=== PATIENT | male | born 1960 | race Two or more races ===

== ENCOUNTER 2025-06-05 11:00 | Day surgery (SDC) | payer OTHER ==
[2025-05-29 11:39] VITALS: BP 127/84
[~2025-06-05] VITALS: Ht 175.3 cm; Wt 76.2 kg
[~2025-06-05 11:00] MED LIST: FINASTERIDE1 MG PO; NEXIUM 24HR20 M1 PO; TAMS0.4C PO; ZOCOR40 MG PO
[2025-06-05] MEDS ORDERED: CEFTRIAXONE SODIUM 2,000 MG VIAL ONE ×2 (12:57→13:00)
[2025-06-05] MEDS ORDERED: METRONIDAZOLE/SODIUM CHLORIDE 500 MG/100 ML PIGGYBACK IV ONE (12:57)
[2025-06-05] MEDS ORDERED: DIBUCAINE 30 GM TUBE ONE (14:45)
[2025-06-05] MEDS ORDERED: BUPIVACAINE HCL/MPF 0.5% 30ML VIAL ONE (14:45)
[2025-06-05] MEDS ORDERED: HEMOSTATIC MATRIX 1 KIT KIT TOP ONE (14:45)
[2025-06-05] MEDS ORDERED: POVIDONE-IODINE 118 ML BOTT TOP ONE (14:45)
[2025-06-05] MEDS ORDERED: LIDOCAINE HCL 1%/EPINEPHRINE 20ML VIAL IJ ONE (14:45)
[2025-06-05] MEDS ORDERED: NEURONTIN300 MG PO (14:46)
[2025-06-05] MEDS ORDERED: COLACE100 MG PO (14:46)
[2025-06-05] MEDS ORDERED: TRAM1TAB98 PO (14:46)
[2025-06-05] MEDS ORDERED: MORPHINE SULFATE 4 MG/ML CARTRIDGE IV STA (21:04)
[2025-06-05] MEDS ORDERED: ACETAMINOPHEN 500 MG GEL..CAP PO STA (21:04)
[2025-06-05] MEDS ORDERED: ACETAMINOPHEN 500 MG GEL..CAP PO ONE (21:07)
== END 2025-06-05 22:10 | disposition home or self-care (01) ==
LOC: CIR.AMB 11:00
PROVIDERS: ATTEND Surgery
DX: K64.4 Residual hemorrhoidal skin tags (principal); K64.1 Second degree hemorrhoids; K62.5 Hemorrhage of anus and rectum; K62.89 Other specified diseases of anus and rectum